=== PATIENT | female | born 1985 | race Caucasian/White ===

== ENCOUNTER 2024-05-27 18:02 | Inpatient (IN) | payer MEDICAID, SELFPAY ==
[2024-05-27 18:04] VITALS: BP 130/100; PULSE 98; RESP 18; TEMP 36.1; O2SAT 96; BMI 25.3
[2024-05-27 18:44] LABS: Absolute Lymphocyte Count 3.55 X10^3/uL (0.83-4.51); Absolute Neutrophil Count 8.1 X10^3/uL (2.0-7.7); Basophil# 0.12 X10^3/uL; Basophil% 0.9 % (0-1); Eosinophil# 0.16 X10^3/uL; Eosinophils% 1.3 % (0-5); Hematocrit 47.5 % (37-47); Hemoglobin 16.2 g/dL (12.0-15.0); Lymphocyte # 3.55 X10^3/ul (0.83-4.51); Lymphocyte % 28.1 % (19-41); Mean Corp Hgb Conc 34.1 g/dL (32-36); Mean Corpuscular Hgb 33.3 pg (27.0-32.0); Mean Corpuscular Volume 97.5 fL (81-99); Mean Platelet Vol. 10.9 fl (6.2-12.0); Monocyte# 0.66 X10^3/uL; Monocyte% 5.2 % (0-10); NRBC Flagged by Analyzer 0 % (0-5); Neutrophil # 8.11 X10^3/uL (2.7-7.7); Neutrophil % 64.1 % (47-70); Platelet Count 390 K/mm3 (150-450); RBC Distribution Width CV 12.7 % (11.6-14.6); RBC Distribution Width SD 45.1 fl (35.1-43.9); Red Blood Count 4.87 M/mm3 (4.2-5.4); White Blood Count 12.7 K/mm3 (4.4-11.0)
--- NOTE | 2024-05-27 19:00 | EDS_ITS ---
HPI History of Present Illness Chief Complaint: Substance Abuse Informant: patient and friend Narrative Narrative: Presents for assistance of alcohol. She has had on off alcohol use for 25 years. She has had more consistent alcohol use over the last 3 years. She states previous able to stop when she was . She has not ever had detox in the past. She drinks a sixpack of beer and a pint of liquor plus per patient. Today has had 6 beers last drink 3 hours ago. She states her last 2 weeks has been waking up with tremors for which she starts drinking to help. She has not had any withdrawal seizures. She states occasional marijuana use last used 2 days ago. No other recreational drugs. Denies nausea or vomiting. She states she has friends at [facility], she was told about detox program here. Denies suicidal or homicidal ideations. Prior similar symptoms: Yes PFSH PFSH Home Medications ?Medication ?Instructions ?Recorded ?Last Taken ?Type No Known/Unobtainable [No Known 5 Unknown History Home Medications] Allergy/AdvReac Type Severity Reaction Status Date / Time No Known Allergies Allergy Verified 05/27/24 18:03 Surgical History History of Social History Smoking Status: Current every day smoker tobacco type: cigarettes ROS ROS ED Constitutional Constitutional ED: Denies chills, fever(s) or sweats ENT ENT ED: Denies sore throat Cardiovascular Cardiovascular: Denies chest pain, leg edema, palpitations or racing heartbeat Respiratory/Chest Respiratory/Chest: Denies cough, dyspnea or dyspnea on exertion Gastrointestinal Gastrointestinal: Denies abdominal pain, diarrhea, nausea or vomiting Genitourinary Genitourinary ED: Denies dysuria, hematuria or urinary frequency Musculoskeletal Musculoskeletal: Denies back pain, extremity pain or neck pain Integumentary Denies rash or wounds Neurologic Neurologic: Reports other Details: Morning tremors were last 2 weeks ; Denies headache(s), paresthesias or weakness EXAM Physical Exam Const Vital Signs: 05/27/24 18:04 05/27/24 20:00 05/27/24 20:04 Temperature 96.9 F L 98.1 F Temperature Source Temporal Pulse Rate 98 96 95 Respiratory Rate 18 18 18 Blood Pressure 130/100 H 113/78 113/78 Blood Pressure Mean 110 89 89 Pulse Ox 96 97 96 Oxygen Delivery Method Room Air Room Air Positive well nourished and well developed Constitutional Narrative: Nontoxic, tearful during discussion. General Appearance ED: well developed and NAD HEENT Reports moist mucous membranes normocephalic and atraumatic Eyes General Eye ED: Yes normal appearance of both eyes Neck full ROM Chest Wall Chest: Negative for tenderness Resp normal respiratory effort and normal air movement Effort and Inspection: symmetric chest movement; Negative for respiratory distress Cardio regular rate, regular rhythm and no murmurs Peripheral Pulses: pulses 2+ throughout GI normal to inspection, nondistended, normoactive bowel sounds and non-tender Palpation: Negative for guarding or rebound tenderness present Extremity normal to inspection General Extremety ED: Negative for edema or tenderness General Extremity: Negative for edema Neuro oriented x3 and no sensory deficits noted Sensorium / Orientation: awake and alert Psych Psych Narrative: No suicidal or homicidal ideations. Skin no rashes or lesions noted and no wounds MDM MDM MDM Narrative Medical decision making narrative: Interventions / MDM: Differential diagnosis: Alcohol dependence, alcohol withdrawal Diagnosis considered but do not suspect: N/A My EKG interpretation: N/A Imaging independently reviewed and interpreted by myself: N/A External documents reviewed: N/A Test considered but not ordered:N/A ED course: Vital signs stable nontoxic. No suicidal homicidal ideations. Here for alcohol detox with withdrawal symptoms new over last 2 weeks. Labs are drawn and pending. Will plan for admission. 1930: Alcohol 180 toxicology with THC. Labs slight transaminitis. hCG negative. Will discuss with hospitalist for admission. 2005: Spoke with Dr. Wood for admission to the medical floor. Re-evaluation: stable Disposition discussed with patient/family/significant other: Patient and friend Case discussed with consulting clinician: Hospitalist This note was generated with [employer] dictation software. It may contain incorrect words, spelling, and punctuation that were not noted in checking the note before signing. Lab Data Attestation: I reviewed the patient's lab results. Labs: Laboratory Results - last 24 hr 05/27/24 18:31 WBC 12.7 H RBC 4.87 Hgb 16.2 H Hct 47.5 H MCV 97.5 MCH 33.3 H MCHC 34.1 RDW Std Deviation 45.1 H RDW Coeff of Nicanor 12.7 Plt Count 390 MPV 10.9 Immature Gran % (Auto) 0.400 Neut % (Auto) 64.1 Lymph % (Auto) 28.1 [place] % (Auto) 5.2 Eos % (Auto) 1.3 Baso % (Auto) 0.9 Absolute Neuts (auto) 8.1 H Absolute Lymphs (auto) 3.55 Nucleated RBC % 0 PT 12.4 INR 0.9 Sodium 140 Potassium 3.8 Chloride 105 Carbon Dioxide 17.9 L Anion Gap 16 H BUN 6 Creatinine 0.66 L Estim Creat Clear Calc 107.64 Est GFR (MDRD) Non-Af 114 BUN/Creatinine Ratio 8.8 L Glucose 90 Calcium 8.9 Magnesium 2.3 H Total Bilirubin 0.23 Direct Bilirubin 0.09 AST 45 H ALT 38 H Alkaline Phosphatase 97 Total Protein 8.0 Albumin 4.3 Globulin 3.6 Serum , Qual NEGATIVE Urine Opiates Screen NEGATIVE U Buprenorphine Qual NEGATIVE Ur Oxycodone Screen NEGATIVE Urine Methadone Screen NEGATIVE Urine Fentanyl Screen NEGATIVE Ur Barbiturates Screen NEGATIVE Ur Phencyclidine Scrn NEGATIVE Ur Amphetamines Screen NEGATIVE U Benzodiazepines Scrn NEGATIVE Urine Cocaine Screen NEGATIVE U Cannabinoids Screen PRESUMPTIVE POSITIVE Ethyl Alcohol 180.0 H Discharge Plan Dx/Rx/DC Orders Clinical Impression: Alcohol dependence, Alcohol withdrawal Disposition Disposition: Acute Care Hospital [facility] Discharge Date/Time: 05/27/24 20:29
[2024-05-27 19:16] LABS: AST(SGOT) 45 U/L (<=31); Alanine Aminotransfer ALT/SGPT 38 U/L (<=34); Albumin, Serum 4.3 g/dL (3.5-5.0); Alkaline Phosphatase 97 U/L (35-104); Anion Gap 16 (5-15); BUN 6 mg/dL (4-19); BUN/Creat Ratio 8.8 RATIO (10-20); Bilirubin, Direct 0.09 mg/dL (0.00-0.30); Calcium,Total 8.9 mg/dL (7.6-11.0); Carbon Dioxide 17.9 mmol/L (21.0-32.0); Chloride 105 mmol/L (98-108); Creatinine, Serum 0.66 mg/dL (0.70-1.20); EST Glomerular Filtration Rate 114 (>60); Estimated Creatinine Clearance 107.64 ml/min (50-250); Globulin 3.6 g/dL (2.2-4.2); Glucose 90 mg/dL (70-99); Potassium 3.8 mmol/L (3.3-5.1); Sodium Level 140 mmol/L (133-145); Total Bilirubin 0.23 mg/dL (0.00-1.30)
[2024-05-27 19:17] LABS: Internal QC Validated? YES +Cl - CLEAR BKGD; Pregnancy, Serum, hCG Quali. NEGATIVE Negative
[2024-05-27 19:18] LABS: Record Kit Lot#, Serum Preg. 929381
[2024-05-27 19:22] LABS: Amphetamine Urine NEGATIVE (<1000 ng/mL); Barbiturate Urine NEGATIVE (< 200 ng/mL); Benzodiazepine Urine NEGATIVE (< 200 ng/mL); Buprenorphine Urine NEGATIVE (< 200 ng/mL); Cocaine Urine NEGATIVE (< 300 ng/mL); Fentanyl, Urine NEGATIVE; Methadone Urine NEGATIVE (< 300 ng/mL); Opiates Urine NEGATIVE (< 300 ng/mL); Oxycodone, Urine NEGATIVE (< 100 ng/mL); PCP Urine NEGATIVE (< 25 ng/mL); THC Urine PRESUMPTIVE POSITIVE (< 50 ng/mL)
[2024-05-27 20:00] VITALS: BP 113/78; PULSE 96; RESP 18; O2SAT 97
--- NOTE | 2024-05-27 20:02 | PCM.HP.STD ---
[facility] - General General Date of Admission: 05/27/24 Date of Service: 05/27/24 Chief Complaint: Wants Help with EtOH Detox. HPI Narrative DEVONTE CANDELARIO, is a 38 F with a past medical history of Tobacco Abuse and Chronic EtOH Abuse; on-and-off for the past ~25 years with more consistent alcohol abuse over the last 3 years with patient routinely drinking a sixpack of beer and a pint of liquor daily who presents to [facility] ER complaining of wanting help with alcohol detoxification. She states her last drink was approximately 3 hours prior to arrival. She states over the last 2 weeks she has been waking up with tremors and craving for alcohol but she denies any related alcohol withdrawal seizures. She also admits to occasional cannabis abuse with her last use approximately 2 days ago. She denies other illicit drugs and she denies having participated in formal detoxification program in the past. She states she was able to quit previously when she was as she has a 21-year-old son in addition to 15 and 16-year-old daughters who need her to be fully functional and sober, which is her primary reason for trying to quit. She states she has friends at [address] and was told about our detoxification program there. She denies associated fever, chills, nausea, vomiting, diarrhea, constipation, abdominal pain chest pain, uncontrolled depression or anxiety, headache, rash or other recent illness/injury. In the ER she was noted to have an elevated JAMIE of 180 mg/dL consistent with Acute Alcohol Intoxication in the setting of Chronic Alcohol Abuse complicated by ongoing Tobacco Abuse and Cannabis Abuse and she was then admitted to the general medical floor for ongoing care for stay that is expected to extend beyond 2 midnights. [facility] Home Medications ?Medication ?Instructions ?Recorded ?Last Taken ?Type No Known/Unobtainable [No Known 06/29/14 Unknown History Home Medications] Allergy/AdvReac Type Severity Reaction Status Date / Time No Known Allergies Allergy Verified 05/27/24 18:03 Surgical History History of Social History Smoking Status: Current every day smoker tobacco type: cigarettes ROS ROS Narrative Review of Systems: Constitutional: Patient denies fever or chills. Eyes: Patient denies changes in vision or discharge from eyes. ENT: Patient denies runny nose, sore throat or ear pain. Resp: Patient denies SOB or cough. CV: Patient denies chest pain, palpitations, heart racing or LE edema. GI: Patient denies abdominal pain, nausea, vomiting, diarrhea or constipation. : Patient denies dysuria, hematuria urinary frequency. MSK: Patient denies arthralgias or myalgias. Skin: Patient denies rash, abscess, wounds or jaundice. Psych: Patient denies symptoms of uncontrolled depression or anxiety. Neuro: Patient denies headache, paresthesias or focal neurologic deficits. Allergy: Patient denies lip swelling, tongue swelling or urticaria. Hematology: Patient denies easy bleeding or easy bruisability. Endocrinology: Patient denies polyuria, polydipsia, polyphagia or heat/cold intolerance. 14 point ROS otherwise negative save for positives noted above in HPI. Vital Signs Vital Signs Vital Signs: 05/27/24 18:04 Temperature 96.9 F L Temperature Source Temporal Pulse Rate 98 Respiratory Rate 18 Blood Pressure 130/100 H Blood Pressure Mean 110 Pulse Ox 96 Oxygen Delivery Method Room Air Weight Weight: 147 lb 8 oz Body Mass Index (BMI) 25.3 Physical Exam Const alert, oriented x3, no apparent distress and average body habitus General Appearance: cooperative HEENT normocephalic, head/scalp atraumatic, hearing grossly normal bilaterally and moist oral mucous membranes Eyes PERRL and EOMs intact bilaterally Neck no lymphadenopathy and supple Resp normal respiratory effort, no retractions, no use of accessory muscles and clear to auscultation bilaterally Cardio regular rate and regular rhythm GI normal to inspection, nondistended, normoactive bowel sounds, soft to palpation, non-tender and non-distended Extremity normal to inspection and full ROM Skin Skin Narrative: Patient has no evidence of rash, abscess, jaundice or wounds. Neuro oriented x3, CN's II-XII intact bilaterally, moves all extremities and no focal motor deficits Sensorium / Orientation: awake, alert, oriented to person, oriented to place and oriented to time Speech: speech normal Psych affect normal Results Medical Records Data Attestation: I reviewed the patient's medical records Lab / Micro Data Attestation: I reviewed the patient's lab results. 05/27/24 18:31 05/27/24 18:31 Labs: Laboratory Results - last 24 hr 05/27/24 18:31: WBC 12.7 H, RBC 4.87, Hgb 16.2 H, Hct 47.5 H, MCV 97.5, MCH 33.3 H, MCHC 34.1, RDW Std Deviation 45.1 H, RDW Coeff of Nicanor 12.7, Plt Count 390, MPV 10.9, Immature Gran % (Auto) 0.400, Neut % (Auto) 64.1, Lymph % (Auto) 28.1, [place] % (Auto) 5.2, Eos % (Auto) 1.3, Baso % (Auto) 0.9, Absolute Neuts (auto) 8.1 H, Absolute Lymphs (auto) 3.55, Nucleated RBC % 0, Sodium 140, Potassium 3.8, Chloride 105, Carbon Dioxide 17.9 L, Anion Gap 16 H, BUN 6, Creatinine 0.66 L, Estim Creat Clear Calc 107.64, Est GFR (MDRD) Non-Af 114, BUN/Creatinine Ratio 8.8 L, Glucose 90, Calcium 8.9, Total Bilirubin 0.23, Direct Bilirubin 0.09, AST 45 H, ALT 38 H, Alkaline Phosphatase 97, Total Protein 8.0, Albumin 4.3, Globulin 3.6, Serum , Qual NEGATIVE, Urine Opiates Screen NEGATIVE, U Buprenorphine Qual NEGATIVE, Ur Oxycodone Screen NEGATIVE, Urine Methadone Screen NEGATIVE, Urine Fentanyl Screen NEGATIVE, Ur Barbiturates Screen NEGATIVE, Ur Phencyclidine Scrn NEGATIVE, Ur Amphetamines Screen NEGATIVE, U Benzodiazepines Scrn NEGATIVE, Urine Cocaine Screen NEGATIVE, U Cannabinoids Screen PRESUMPTIVE POSITIVE, Ethyl Alcohol 180.0 H Assessment & Plan Assessment/Plan (1) Acute alcohol intoxication: QUALIFIERS: Complication of substance-induced condition: uncomplicated Qualified Code(s): F10.920 - Alcohol use, unspecified with intoxication, uncomplicated (2) Chronic alcohol abuse: (3) Tobacco abuse: (4) Cannabis abuse: PLAN: Plan 1. Acute EtOH Intoxication; with JAMIE of 180 mg/dL present on admission in the setting of Chronic EtOH Abuse - Admit to general medical floor under the alcohol detoxification protocol primarily consisting of phenobarbital taper. Start supplemental vitamin B12 and folate. Give ibuprofen as needed for pain or fever. Give ondansetron as needed for nausea and vomiting. Finally, we will consult Case Management see this patient on rounds in the a.m. further recommendations without appreciated in advance. 2. Tobacco Abuse complicating #1 - Tobacco Cessation will be strongly encouraged with Nicotine patch offered to control cravings. 3. Cannabis Abuse compounding #1 & #2 - Cannabis Cessation will be strongly encouraged. 4. Remote history of - Noted for the sake of completeness. 5. DVT prophylaxis - Enoxaparin 40 mg sq daily. Total time: Approximately (but not less than) 40 minutes. Charges/Coding Visit Charges Inpatient E&M: 14158 Init Hosp L1
[2024-05-27 20:04] VITALS: BP 113/78; PULSE 95; RESP 18; TEMP 36.7; O2SAT 96
[2024-05-27 20:31] LABS: International Normalized Ratio 0.9; Prothrombin Time (Protime)PT. 12.4 SECONDS (11.7-14.9)
[2024-05-27 20:33] VITALS: BMI 24.7
[2024-05-27 20:37] VITALS: BP 121/75; PULSE 98; RESP 14; TEMP 36.7; O2SAT 96
[2024-05-27 20:55] LABS: Magnesium 2.3 mg/dL (1.5-2.2)
[2024-05-27] MEDS: 0.9% Normal Saline (1000mL) 1,000 ML 150 ML IV (21:02)
[2024-05-27] MEDS: Phenobarbital 32.4 MG Tablet 64.8 MG PO (21:02)
[2024-05-27] MEDS: Ibuprofen 200 MG Tablet PO (21:02)
[2024-05-27] MEDS: hydrOXYzine PAM 25 MG Capsule 50 MG PO (21:03)
[2024-05-27 22:54] VITALS: BMI 24.7
[2024-05-28 00:30] VITALS: BP 126/87; PULSE 100; RESP 14; TEMP 36.6; O2SAT 97
[2024-05-28] MEDS: Phenobarbital 32.4 MG Tablet 64.8 MG PO ×6 (00:32→21:14)
[2024-05-28] MEDS: 0.9% Normal Saline (1000mL) 1,000 ML 150 ML IV (05:09)
[2024-05-28 05:11] VITALS: BP 118/81; PULSE 84; RESP 14; TEMP 36.6; O2SAT 98
[2024-05-28 08:06] LABS: Absolute Lymphocyte Count 3.87 X10^3/uL (0.83-4.51); Absolute Neutrophil Count 4.4 X10^3/uL (2.0-7.7); Basophil# 0.09 X10^3/uL; Eosinophil# 0.33 X10^3/uL; Eosinophils% 3.5 % (0-5); Hematocrit 44.7 % (37-47); Hemoglobin 14.7 g/dL (12.0-15.0); Lymphocyte # 3.87 X10^3/ul (0.83-4.51); Lymphocyte % 41.2 % (19-41); Mean Corp Hgb Conc 32.9 g/dL (32-36); Mean Corpuscular Hgb 33.3 pg (27.0-32.0); Mean Corpuscular Volume 101.4 fL (81-99); Mean Platelet Vol. 11.5 fl (6.2-12.0); Monocyte# 0.65 X10^3/uL; Monocyte% 6.9 % (0-10); NRBC Flagged by Analyzer 0 % (0-5); Neutrophil # 4.44 X10^3/uL (2.7-7.7); Neutrophil % 47.2 % (47-70); Platelet Count 322 K/mm3 (150-450); RBC Distribution Width CV 12.9 % (11.6-14.6); RBC Distribution Width SD 48.2 fl (35.1-43.9); Red Blood Count 4.41 M/mm3 (4.2-5.4); White Blood Count 9.4 K/mm3 (4.4-11.0)
[2024-05-28 08:43] LABS: ALB/GLOB Ratio 1.3 RATIO (0.9-2.4); AST(SGOT) 32 U/L (<=31); Alanine Aminotransfer ALT/SGPT 29 U/L (<=34); Albumin, Serum 3.6 g/dL (3.5-5.0); Alkaline Phosphatase 85 U/L (35-104); Anion Gap 11 (5-15); BUN 8 mg/dL (4-19); BUN/Creat Ratio 10.4 RATIO (10-20); Calcium,Total 8.4 mg/dL (7.6-11.0); Carbon Dioxide 22.3 mmol/L (21.0-32.0); Chloride 105 mmol/L (98-108); Creatinine, Serum 0.73 mg/dL (0.70-1.20); EST Glomerular Filtration Rate 107 (>60); Estimated Creatinine Clearance 89.35 ml/min (50-250); Globulin 2.9 g/dL (2.2-4.2); Glucose 82 mg/dL (70-99); Phosphorus 4.1 mg/dL (2.7-4.5); Potassium 3.9 mmol/L (3.3-5.1); Protein, Total 6.5 g/dL (5.9-8.4); Sodium Level 138 mmol/L (133-145); Total Bilirubin 0.17 mg/dL (0.00-1.30)
[2024-05-28 09:10] VITALS: BP 129/84; PULSE 80; RESP 16; TEMP 36.8; O2SAT 97
[2024-05-28] MEDS: Folic Acid 1 MG Tablet PO (09:19)
[2024-05-28] MEDS: Thiamine Hydrochloride 100 MG Tablet PO (09:19)
[2024-05-28] MEDS: Enoxaparin 40 MG/0.4 ML Syringe SC (09:20)
[2024-05-28] MEDS: hydrOXYzine PAM 25 MG Capsule 50 MG PO ×2 (09:24→21:23)
--- NOTE | 2024-05-28 12:45 | ADDICTION ---
Attempted to meet with pt. She was sleeping and unable to be roused 3x. Clinician will see her tomorrow for assessment and d/c planning.
--- NOTE | 2024-05-28 13:31 | PN.HOSP_ITS ---
Reason for Visit Reason for Visit: Diagnoses Alcohol abuse, uncomplicated (05/27/24) Alcohol use, unspecified with intoxication, uncomplicated (05/27/24) Cannabis abuse, uncomplicated (05/27/24) Tobacco use (05/27/24) Subjective Subjective Patient sitting up in bed, feeling better, no nausea or vomiting, feels little bit tired but is tolerating taper Objective Data Objective Data Vital Signs: Vital Signs Temp Pulse Resp BP Pulse Ox O2 Del Method 98.3 F 80 16 129/84 H 97 Room Air 05/28/24 09:10 05/28/24 09:10 05/28/24 09:10 05/28/24 09:10 05/28/24 09:10 05/28/24 09:10 Oxygen Delivery Method Room Air Weight: 65.3 kg Body Mass Index (BMI) 24.7 Intake & Output: Intake and Output for Last 24 Hours 05/26/24 05/27/24 05/28/24 23:59 23:59 23:59 Intake Total 2435 / 2435 Balance 2435 / 2435 Lab / Micro Data 05/28/24 06:25 05/28/24 06:25 Labs: Laboratory Results - last 24 hr 05/27/24 18:31: WBC 12.7 H, RBC 4.87, Hgb 16.2 H, Hct 47.5 H, MCV 97.5, MCH 33.3 H, MCHC 34.1, RDW Std Deviation 45.1 H, RDW Coeff of Nicanor 12.7, Plt Count 390, MPV 10.9, Immature Gran % (Auto) 0.400, Neut % (Auto) 64.1, Lymph % (Auto) 28.1, [place] % (Auto) 5.2, Eos % (Auto) 1.3, Baso % (Auto) 0.9, Absolute Neuts (auto) 8.1 H, Absolute Lymphs (auto) 3.55, Nucleated RBC % 0, PT 12.4, INR 0.9, Sodium 140, Potassium 3.8, Chloride 105, Carbon Dioxide 17.9 L, Anion Gap 16 H, BUN 6, Creatinine 0.66 L, Estim Creat Clear Calc 107.64, Est GFR (MDRD) Non-Af 114, B UN/Creatinine Ratio 8.8 L, Glucose 90, Calcium 8.9, Magnesium 2.3 H, Total Bilirubin 0.23, Direct Bilirubin 0.09, AST 45 H, ALT 38 H, Alkaline Phosphatase 97, Total Protein 8.0, Albumin 4.3, Globulin 3.6, Serum , Qual NEGATIVE, Urine Opiates Screen NEGATIVE, U Buprenorphine Qual NEGATIVE, Ur Oxycodone Screen NEGATIVE, Urine Methadone Screen NEGATIVE, Urine Fentanyl Screen NEGATIVE, Ur Barbiturates Screen NEGATIVE, Ur Phencyclidine Scrn NEGATIVE, Ur Amphetamines Screen NEGATIVE, U Benzodiazepines Scrn NEGATIVE, Urine Cocaine Screen NEGATIVE, U Cannabinoids Screen PRESUMPTIVE POSITIVE, Ethyl Alcohol 180.0 H 05/28/24 06:25: WBC 9.4, RBC 4.41, Hgb 14.7, Hct 44.7, MCV 101.4 H, MCH 33.3 H, MCHC 32.9, RDW Std Deviation 48.2 H, RDW Coeff of Nicanor 12.9, Plt Count 322, MPV 11.5, Immature Gran % (Auto) 0.200, Neut % (Auto) 47.2, Lymph % (Auto) 41.2 H, [place] % (Auto) 6.9, Eos % (Auto) 3.5, Baso % (Auto) 1.0, Absolute Neuts (auto) 4.4, Absolute Lymphs (auto) 3.87, Nucleated RBC % 0, Sodium 138, Potassium 3.9, Chloride 105, Carbon Dioxide 22.3, Anion Gap 11, BUN 8, Creatinine 0.73, Estim Creat Clear Calc 89.35, Est GFR (MDRD) Non-Af 107, BUN/Creatinine Ratio 10.4, Glucose 82, Calcium 8.4, Phosphorus 4.1, Total Bilirubin 0.17, AST 32, ALT 29, Alkaline Phosphatase 85, Total Protein 6.5, Albumin 3.6, Globulin 2.9, Albumin/Globulin Ratio 1.3, TSH 2.830 Physical Exam Narrative General: Alert, no apparent distress HEENT: Atraumatic, normocephalic Eyes: extraocular movements grossly intact Neck: Supple Respiratory: normal respiratory effort GI: nondistended Extremities: Moving all extremities Neuro: No overt focal neurological deficits Psych: Cooperative Assessment & Plan Assessment/Plan (1) Acute alcohol intoxication: QUALIFIERS: Complication of substance-induced condition: u ncomplicated Qualified Code(s): F10.920 - Alcohol use, unspecified with intoxication, uncomplicated (2) Chronic alcohol abuse: (3) Tobacco abuse: (4) Cannabis abuse: PLAN: Plan 1. Acute EtOH Intoxication; with JAMIE of 180 mg/dL present on admission in the setting of Chronic EtOH Abuse - Admit to general medical floor under the alcohol detoxification protocol primarily consisting of phenobarbital taper. Start supplemental vitamin B12 and folate. Give ibuprofen as needed for pain or fever. Give ondansetron as needed for nausea and vomiting. Finally, we will consult Case Management see this patient on rounds in the a.m. further recommendations without appreciated in advance. -05/28: Patient tolerating taper thus far, continue current medical management Chronic medical problems and/or problems not being actively addressed during today's encounter: 2. Tobacco Abuse complicating #1 - Tobacco Cessation will be strongly encouraged with Nicotine patch offered to control cravings. 3. Cannabis Abuse compounding #1 & #2 - Cannabis Cessation will be strongly encouraged. 4. Remote history of - Noted for the sake of completeness. 5. DVT prophylaxis - Enoxaparin 40 mg sq daily. Charges/Coding Visit Charges Inpatient E&M: 96558 Subs Hosp L1
[2024-05-28 14:30] VITALS: BP 124/79; PULSE 78; RESP 16; TEMP 37.2; O2SAT 97
[2024-05-28 21:12] VITALS: BP 124/85; PULSE 76; RESP 16; TEMP 36.6; O2SAT 99
[2024-05-28] MEDS: 0.9% Saline Lock 10 ML Syringe IV (21:24)
[2024-05-29] VITALS (7 sets, daily range): BP systolic 114–134; BP diastolic 62–94; PULSE 71–94; RESP 16–18; TEMP 36.4–37; O2SAT 97–99; BMI 26.6
[2024-05-29] MEDS: Phenobarbital 32.4 MG Tablet 64.8 MG PO ×6 (01:15→20:08)
[2024-05-29] MEDS: hydrOXYzine PAM 25 MG Capsule 50 MG PO ×4 (04:20→20:08)
[2024-05-29] MEDS: Folic Acid 1 MG Tablet PO (07:54)
[2024-05-29] MEDS: Thiamine Hydrochloride 100 MG Tablet PO (07:54)
[2024-05-29] MEDS: Enoxaparin 40 MG/0.4 ML Syringe SC (07:55)
--- NOTE | 2024-05-29 09:29 | NURSING ---
Called recieved from [facility]. This nurse provided update on current status/mood.
--- NOTE | 2024-05-29 17:15 | PN.HOSP_ITS ---
Reason for Visit Reason for Visit: Diagnoses Alcohol abuse, uncomplicated (05/27/24) Alcohol use, unspecified with intoxication, uncomplicated (05/27/24) Cannabis abuse, uncomplicated (05/27/24) Tobacco use (05/27/24) Subjective Subjective Still somewhat tired but tolerating taper, no new or acute complaints Objective Data Objective Data Vital Signs: Vital Signs Temp Pulse Resp BP Pulse Ox O2 Del Method 98.6 F 72 16 128/87 H 99 Room Air 05/29/24 14:20 05/29/24 14:20 05/29/24 14:20 05/29/24 14:20 05/29/24 14:20 05/29/24 14:20 Oxygen Delivery Method Room Air Weight: 70.4 kg Body Mass Index (BMI) 26.6 Intake & Output: Intake and Output for Last 24 Hours 05/27/24 05/28/24 05/29/24 23:59 23:59 23:59 Intake Total 2935 / 2935 800 / 800 Balance 2935 / 2935 800 / 800 Lab / Micro Data 05/28/24 06:25 05/28/24 06:25 Labs: Laboratory Results - last 24 hr 05/29/24 06:23: Phosphorus 4.0 Physical Exam Narrative General: Alert, oriented, no apparent distress HEENT: Atraumatic, normocephalic Eyes: extraocular movements grossly intact Neck: Supple Respiratory: normal respiratory effort Cardiovascular: no edema appreciated GI: nondistended Extremities: Moving all extremities Neuro: No overt focal neurological deficits Psych: Cooperative Assessment & Plan Assessment/Plan (1) Acute alcohol intoxication: QUALIFIERS: Complication of substance-induced condition: u ncomplicated Qualified Code(s): F10.920 - Alcohol use, unspecified with intoxication, uncomplicated (2) Chronic alcohol abuse: (3) Tobacco abuse: (4) Cannabis abuse: PLAN: Plan 1. Acute EtOH Intoxication; with JAMIE of 180 mg/dL present on admission in the setting of Chronic EtOH Abuse - Admit to general medical floor under the alcohol detoxification protocol primarily consisting of phenobarbital taper. Start supplemental vitamin B12 and folate. Give ibuprofen as needed for pain or fever. Give ondansetron as needed for nausea and vomiting. Finally, we will consult Case Management see this patient on rounds in the a.m. further recommendations without appreciated in advance. -05/28: Patient tolerating taper thus far, continue current medical management -05/29: Continues to tolerate taper, no new or acute complaints, continue current management at this time Chronic medical problems and/or problems not being actively addressed during today's encounter: 2. Tobacco Abuse complicating #1 - Tobacco Cessation will be strongly encouraged with Nicotine patch offered to control cravings. 3. Cannabis Abuse compounding #1 & #2 - Cannabis Cessation will be strongly encouraged. 4. Remote history of - Noted for the sake of completeness. 5. DVT prophylaxis - Enoxaparin 40 mg sq daily. Charges/Coding Visit Charges Inpatient E&M: 16257 Subs Hosp L1
--- NOTE | 2024-05-29 17:38 | ADDICTION ---
Pt was met w/to complete the Ramp assessment, AUDIT, ASAM, DUDIT, MSE, and DC Plan. Pt reports her drinking is daily and interfering with her ability to fx and meet her most basic needs. Pt reports some depression and low motivation related to her ANTELMO. Pt states that she and her fifteen year old daughter are staying with a friend who has mh issues and the pt wants to find different housing. Pt states that she would consider entering residential tx if her 15 yr old daughter can accompany her to residential tx. Typically [facility] caps parent child admissions at age twelve. Pt was referred to [facility] admissions team to evaluate pt's barriers to residential. Pt was encouraged to contact [facility] on Friday for an assessment. Pt's d/c plan is to return to her friend's home and continue exploring options for outpatient ANTELMO tx.
[2024-05-29] MEDS: Ibuprofen 200 MG Tablet PO (20:08)
[2024-05-29] MEDS: traZODone 100 MG Tablet PO (20:08)
[2024-05-30] MEDS: Phenobarbital 32.4 MG Tablet 64.8 MG PO ×4 (00:39→16:36)
[2024-05-30 03:38] VITALS: BP 120/79; PULSE 84; RESP 18; TEMP 36.5; O2SAT 98
[2024-05-30 06:15] VITALS: BP 130/70; PULSE 90; RESP 18; TEMP 36.6; O2SAT 98
[2024-05-30 08:15] VITALS: BMI 25.7
[2024-05-30 08:45] VITALS: PULSE 89; RESP 18; O2SAT 100
[2024-05-30] MEDS: Folic Acid 1 MG Tablet PO (09:00)
[2024-05-30] MEDS: Thiamine Hydrochloride 100 MG Tablet PO (09:00)
[2024-05-30] MEDS: Enoxaparin 40 MG/0.4 ML Syringe SC (09:01)
[2024-05-30 09:11] VITALS: BP 101/76; PULSE 89; RESP 18; TEMP 36.6; O2SAT 100
[2024-05-30] MEDS: hydrOXYzine PAM 25 MG Capsule 50 MG PO ×2 (10:34→15:12)
[2024-05-30 15:00] VITALS: PULSE 89; RESP 18; O2SAT 100
[2024-05-30 15:06] VITALS: BP 150/70; PULSE 89; RESP 18; TEMP 36.6; O2SAT 100
[2024-05-30] MEDS: Senna/Docusate Sodium 1 Tablet 2 TABLET PO (15:09)
--- NOTE | 2024-05-30 16:10 | PN.HOSP_ITS ---
Reason for Visit Reason for Visit: Diagnoses Alcohol abuse, uncomplicated (05/27/24) Alcohol use, unspecified with intoxication, uncomplicated (05/27/24) Cannabis abuse, uncomplicated (05/27/24) Tobacco use (05/27/24) Subjective Subjective Patient now more awake and alert and starting to get up around and ambulate Objective Data Objective Data Vital Signs: Vital Signs Temp Pulse Resp BP Pulse Ox O2 Del Method 98 F 89 18 150/70 H 100 Room Air 05/30/24 15:06 05/30/24 15:06 05/30/24 15:06 05/30/24 15:06 05/30/24 15:06 05/30/24 15:06 Oxygen Delivery Method Room Air Weight: 68.039 kg Body Mass Index (BMI) 25.7 Intake & Output: Intake and Output for Last 24 Hours 05/28/24 05/29/24 05/30/24 23:59 23:59 23:59 Intake Total 2935 / 2935 1200 / 1200 1500 / 1500 Balance 2935 / 2935 1200 / 1200 1500 / 1500 Lab / Micro Data 05/28/24 06:25 05/28/24 06:25 Physical Exam Narrative General: Alert, oriented, no apparent distress HEENT: Atraumatic, normocephalic Eyes: extraocular movements grossly intact Neck: Supple Respiratory: normal respiratory effort Cardiovascular: no edema appreciated GI: nondistended Extremities: Moving all extremities Neuro: No overt focal neurological deficits Psych: Cooperative Assessment & Plan Assessment/Plan (1) Acute alcohol intoxication: QUALIFIERS: Complication of substance-induced condition: u ncomplicated Qualified Code(s): F10.920 - Alcohol use, unspecified with intoxication, uncomplicated (2) Chronic alcohol abuse: (3) Tobacco abuse: (4) Cannabis abuse: PLAN: Plan 1. Acute EtOH Intoxication; with JAMIE of 180 mg/dL present on admission in the setting of Chronic EtOH Abuse - Admit to general medical floor under the alcohol detoxification protocol primarily consisting of phenobarbital taper. Start supplemental vitamin B12 and folate. Give ibuprofen as needed for pain or fever. Give ondansetron as needed for nausea and vomiting. Finally, we will consult Case Management see this patient on rounds in the a.m. further recommendations without appreciated in advance. -05/28: Patient tolerating taper thus far, continue current medical management -05/29: Continues to tolerate taper, no new or acute complaints, continue current management at this time -05/30: Taper will and weight tomorrow, discussed DC today versus tomorrow based on symptoms and tolerance, patient to DC home tomorrow and follow-up outpatient for further addiction services Chronic medical problems and/or problems not being actively addressed during today's encounter: 2. Tobacco Abuse complicating #1 - Tobacco Cessation will be strongly encouraged with Nicotine patch offered to control cravings. 3. Cannabis Abuse compounding #1 & #2 - Cannabis Cessation will be strongly encouraged. 4. Remote history of - Noted for the sake of completeness. 5. DVT prophylaxis - Enoxaparin 40 mg sq daily. Charges/Coding Visit Charges Inpatient E&M: 97919 Subs Hosp L1
--- NOTE | 2024-05-30 17:18 | DCINST_ITS ---
Discharge Instructions Diet Discharge Diet: No restrictions DC O2, CPAP, BIPAP needs Home O2 Discharge instructions: No Dressing / Incision Discharge Activity: Return to Normal Activity Follow Up Care Test Results: Test results from this visit will be discussed in further detail at your follow- up appointment, if applicable. Discharge Plan Admission Admit Date/Time: 05/27/24 20:11 Primary Reason for Your Visit: ETOH detox Attending Provider: Leann Hutchinson Primary Care Provider: Care Physician,No Primary Consulting Providers: Enrique Cook Instructions Patient Instructions: Alcohol Addiction, Addiction Questionnaire, Addiction: Getting Help, Addiction Recovery Counseling, Addiction Recovery Relapse Discharge Orders/Prescriptions Prescriptions: Continued No Known Home Medications Referrals / Follow Up: Care Physician,No Primary [Primary Care Provider] - Disposition Disposition (needs filled in before D/C Order can be placed): Home, Self Care
--- NOTE | 2024-05-30 17:19 | PCM.DC.SUM ---
Providers Date of Admission: 05/27/24 Date of Discharge: 05/30/24 Primary Care Physician: Esther Primary Care Phys Reason For Visit: IMPENDING ETOH W/D Diagnosis Discharge Diagnosis (1) Acute alcohol intoxication: Status: Acute Code(s): F10.929 - Alcohol use, unspecified with intoxication, unspecified Qualifiers: Complication of substance-induced condition: uncomplicated Qualified Code(s): F10.920 - Alcohol use, unspecified with intoxication, uncomplicated (2) Chronic alcohol abuse: Status: Chronic Code(s): F10.10 - Alcohol abuse, uncomplicated (3) Tobacco abuse: Status: Acute Code(s): Z72.0 - Tobacco use (4) Cannabis abuse: Status: Acute Code(s): F12.10 - Cannabis abuse, uncomplicated Plan 1. Acute EtOH Intoxication 2. Tobacco Abuse complicating 3. Cannabis Abuse compounding 4. Remote history of Medications at Discharge Home Medications No Known/Unobtainable [No Known Home Medications] 06/29/14 Hospital Course Summary of Care Provided Minutes Spent on Discharge: 22 Hospital Course: Patient was admitted 05/27/2024 requesting detox from alcohol. Patient was admitted and detox protocol ordered. They completed their detox and were discharged in stable condition. On the day of discharge no new medical complaints voiced. Physical Exam Narrative General: Alert, oriented, no apparent distress HEENT: Atraumatic, normocephalic Eyes: extraocular movements grossly intact Neck: Supple Respiratory: normal respiratory effort Cardiovascular: no edema appreciated GI: nondistended Extremities: Moving all extremities Neuro: No overt focal neurological deficits Psych: Cooperative Weight / BMI Weight Weight: 68.039 kg Body Mass Index (BMI) 25.7 ABG / Lab / Microbiology Data 05/28/24 06:25 05/28/24 06:25 D/C Instructions Discharge Diet: No restrictions DC O2, CPAP, BIPAP Needs Home O2 Discharge instructions: No Meaningful Use Info Meaningful Use Meaningful Use Diagnoses (Choose all that apply): None applicable Ischemic Stroke Statin Dosing Therapy Reference: STATIN DOSE THERAPY REFERENCE: * Patients > 75 years receive moderate or high dose statin therapy. * Patients 75 years or YOUNGER should receive HIGH intensity statin dose unless contraindicated. You will be required to document reason for non-treatment if statin daily dose does not meet guidelines. HIGH DOSE STATIN THERAPY DAILY Atorvastatin > than or = to 40 mg Rosuvastatin > than or = to 20 mg Amlodipine + Atorvastatin > than or = to 2.5/40 mg Ezetimibe + Simvastatin 10/80 mg Simvastatin 80mg Discharge Plan Admission Admit Date/Time: 05/27/24 20:11 Primary Reason for Your Visit: ETOH detox Attending Provider: Leann Hutchinson Primary Care Provider: Care Physician,No Primary Consulting Providers: Enrique Cook Instructions Patient Instructions: Alcohol Addiction, Addiction Questionnaire, Addiction: Getting Help, Addiction Recovery Counseling, Addiction Recovery Relapse Discharge Orders/Prescriptions Prescriptions: Continued No Known Home Medications Referrals / Follow Up: Care Physician,No Primary [Primary Care Provider] - Disposition Disposition (needs filled in before D/C Order can be placed): Home, Self Care
== END 2024-05-30 18:25 | disposition home or self-care (01) | DRG 775 ==
LOC: ED 19:31 → MS3 20:43
PROVIDERS: Admitting Provider Internal Medicine; Emergency Provider Emergency Medicine; Referring Provider Internal Medicine; Visit Provider Internal Medicine
DX: F10.129 Alcohol abuse with intoxication, unspecified (principal); F12.10 Cannabis abuse, uncomplicated; F17.210 Nicotine dependence, cigarettes, uncomplicated; Y90.6 Blood alcohol level of 120-199 mg/100 ml
CPT/HCPCS: 36415; 80048; 80053; 80076; 80307; 82077; 83735; 84100; 84443; 84703; 85025; 85610; 94668; 99283; 99406; A4216

== ENCOUNTER 2024-06-28 11:54 | Emergency (ER) | payer MEDICAID, SELFPAY ==
[2024-06-28] VITALS (9 sets, daily range): BP systolic 120–179; BP diastolic 79–98; PULSE 56–83; RESP 16; TEMP 35.8; O2SAT 96–99; BMI 25.4
--- NOTE | 2024-06-28 13:56 | EDS_ITS ---
HPI HPI - Psych History of Present Illness Chief Complaint: Mental Health Informant: patient and mental health staff Narrative Narrative: 38-year-old female presenting to the emergency room under pink slip by [facility] ([facility]). Patient was admitted to the [facility] at the beginning of May. She resumed drinking shortly thereafter but not to the extent that she was. She states that she recreationally uses cannabis and will occasionally have alcohol now. She states that her mental health is suffering and she feels depressed. She states that she thinks about daily but does not believe she is actively suicidal. She denies homicidal ideation. Patient states that she is not currently working. She does not speak with her family. She has 2 children that do not stay with her. She states she used to have a roommate. She states that she will sometimes sleep at a campground sometimes at a motel. She is not currently taking any psychiatric medications. She does not regularly see counseling or psychiatry. She was not able to contract for safety with [facility]. [facility] Medical History (Updated 06/28/24 @ 16:[address] Walt Hall DO) Cannabis abuse Tobacco abuse Chronic alcohol abuse Alcohol dependence Home Medications ?Medication ?Instructions ?Recorded ?Last Taken ?Type diphenhydramine HCl 25 mg capsule 25 mg PO PRN 5 Unknown History (Benadryl) Allergy/AdvReac Type Severity Reaction Status Date / Time No Known Allergies Allergy Verified 06/28/24 11:55 Family History no significant family his Surgical History History of Social History Smoking Status: Current every day smoker tobacco type: cigarettes ROS ROS ED Constitutional Constitutional ED: Denies chills, fever(s) or weight loss Eyes Eyes: Denies change in vision or diplopia ENT ENT ED: Denies ear pain, rhinorrhea or sore throat Cardiovascular Cardiovascular: Denies chest pain, orthopnea, palpitations or racing heartbeat Respiratory/Chest Respiratory/Chest: Denies cough, dyspnea or orthopnea Gastrointestinal Gastrointestinal: Denies abdominal pain, diarrhea, nausea or vomiting Genitourinary Genitourinary ED: Denies dysuria, hematuria or urinary frequency Musculoskeletal Musculoskeletal: Denies arthralgias or myalgias Integumentary Denies abscess or rash Neurologic Neurologic: Denies headache(s) or weakness Psychiatric Psychiatric: Reports anxiety, depression and suicidal thoughts; Denies suicidal ideation Endocrine Endocrinology: Denies polydipsia, polyphagia or polyuria Allergic/Immunologic Allergic/Immunologic ED: Denies mouth swelling, tongue swelling or urticaria EXAM Physical Exam Const Vital Signs: 06/28/24 11:55 06/28/24 12:54 06/28/24 13:00 Temperature 96.5 F L Temperature Source Temporal Pulse Rate 74 78 Respiratory Rate 16 Blood Pressure 179/98 H 150/90 H 150/90 H Blood Pressure Mean 125 110 110 Pulse Ox 96 98 97 Oxygen Delivery Method Room Air Room Air Room Air 06/28/24 14:00 06/28/24 15:00 06/28/24 15:52 Temperature Temperature Source Pulse Rate 78 56 L 80 Respiratory Rate Blood Pressure 150/90 H 126/92 H Blood Pressure Mean 110 103 Pulse Ox 98 99 98 Oxygen Delivery Method Room Air Room Air Room Air Positive well nourished and well developed General Appearance ED: well developed HEENT Reports normocephalic, head/scalp atraumatic and moist mucous membranes Eyes PERRL and EOMs intact bilaterally Neck no lymphadenopathy, supple and no JVD Resp normal respiratory effort and clear to auscultation bilaterally Cardio regular rate, regular rhythm and no murmurs GI normal to inspection, nondistended, normoactive bowel sounds and non-tender Palpation: soft Back/Spine no CVA tenderness and normal ROM Extremity normal to inspection General Extremety ED: Negative for edema General Extremity: Negative for edema Neuro oriented x3 and CN's II-XII intact bilaterally Sensorium / Orientation: alert Motor Exam: strength 5/5 throughout Psych mental status grossly normal Appearance: grossly normal Mood & Affect: depressed and sad; Negative for tearful Thought Process: normal thought process Thought Content: other Patient reports thinking of daily Attention / Concentration: attention grossly intact Memory / Cognition: memory grossly intact Skin no rashes or lesions noted and no wounds MDM MDM MDM Narrative Medical decision making narrative: Differential diagnosis includes but not limited to depression bipolar disorder suicidal ideation alcoholism electrolyte abnormalities Psychiatric screening labs were obtained essentially negative. test is negative. Toxicology positive only for cannabinoids which she is readily admits to. Alcohol level is negative. I read the pink slip in the assessment by [facility]. I will fill out a pink slip. We are going to work towards a goal of psychiatric hospitalization. History & Record Review Discussion w/independent historian: Patient Additional record(s) reviewed:: Prior inpatient record, Prior outpatient record, Prior ED visit and Prior labs Lab Data Attestation: I reviewed the patient's lab results. Labs: Laboratory Results - last 24 hr 06/28/24 06/28/24 13:30 14:15 WBC 11.3 H RBC 4.35 Hgb 14.0 Hct 41.6 MCV 95.6 MCH 32.2 H MCHC 33.7 RDW Std Deviation 42.5 RDW Coeff of Nicanor 12.1 Plt Count 279 MPV 11.7 Immature Gran % (Auto) 0.500 Neut % (Auto) 66.0 Lymph % (Auto) 26.8 Morrow % (Auto) 4.8 Eos % (Auto) 1.4 Baso % (Auto) 0.5 Absolute Neuts (auto) 7.4 Absolute Lymphs (auto) 3.02 Nucleated RBC % 0 PT 12.6 INR 0.9 Sodium 136 Potassium 4.0 Chloride 105 Carbon Dioxide 19.3 L Anion Gap 11 BUN 6 Creatinine 0.61 L Estim Creat Clear Calc 116.64 Est GFR (MDRD) Non-Af 116 BUN/Creatinine Ratio 9.1 L Glucose 89 Calcium 8.9 Total Bilirubin 0.36 Direct Bilirubin 0.19 AST 21 ALT 24 Alkaline Phosphatase 81 Total Protein 6.9 Albumin 3.9 Globulin 3.0 Serum , Qual NEGATIVE Urine Opiates Screen NEGATIVE U Buprenorphine Qual NEGATIVE Ur Oxycodone Screen NEGATIVE Urine Methadone Screen NEGATIVE Urine Fentanyl Screen NEGATIVE Ur Barbiturates Screen NEGATIVE Ur Phencyclidine Scrn NEGATIVE Ur Amphetamines Screen NEGATIVE U Benzodiazepines Scrn NEGATIVE Urine Cocaine Screen NEGATIVE U Cannabinoids Screen PRESUMPTIVE POSITIVE Ethyl Alcohol < 10.1 Discharge Plan Triage Chief Complaint: Mental Health ED Provider: Walt Hall Dx/Rx/DC Orders Clinical Impression: Depression, Alcoholism Prescriptions: No Action diphenhydramine HCl [Benadryl] 25 mg capsule 25 mg PO PRN Primary Care Provider: Care Physician,No Primary Referrals: Care Physician,No Primary [Primary Care Provider] - Print Language: Somali Disposition Disposition: Psychiatric Hospital or Unit
[2024-06-28 14:45] LABS: Absolute Lymphocyte Count 3.02 X10^3/uL (0.83-4.51); Absolute Neutrophil Count 7.4 X10^3/uL (2.0-7.7); Basophil# 0.06 X10^3/uL; Basophil% 0.5 % (0-1); Eosinophil# 0.16 X10^3/uL; Eosinophils% 1.4 % (0-5); Hematocrit 41.6 % (37-47); Lymphocyte # 3.02 X10^3/ul (0.83-4.51); Lymphocyte % 26.8 % (19-41); Mean Corp Hgb Conc 33.7 g/dL (32-36); Mean Corpuscular Hgb 32.2 pg (27.0-32.0); Mean Corpuscular Volume 95.6 fL (81-99); Mean Platelet Vol. 11.7 fl (6.2-12.0); Monocyte# 0.54 X10^3/uL; Monocyte% 4.8 % (0-10); NRBC Flagged by Analyzer 0 % (0-5); Neutrophil # 7.42 X10^3/uL (2.7-7.7); Platelet Count 279 K/mm3 (150-450); RBC Distribution Width CV 12.1 % (11.6-14.6); RBC Distribution Width SD 42.5 fl (35.1-43.9); Red Blood Count 4.35 M/mm3 (4.2-5.4); White Blood Count 11.3 K/mm3 (4.4-11.0)
[2024-06-28 14:50] LABS: Amphetamine Urine NEGATIVE (<1000 ng/mL); Barbiturate Urine NEGATIVE (< 200 ng/mL); Benzodiazepine Urine NEGATIVE (< 200 ng/mL); Buprenorphine Urine NEGATIVE (< 200 ng/mL); Cocaine Urine NEGATIVE (< 300 ng/mL); Fentanyl, Urine NEGATIVE; Methadone Urine NEGATIVE (< 300 ng/mL); Opiates Urine NEGATIVE (< 300 ng/mL); Oxycodone, Urine NEGATIVE (< 100 ng/mL); PCP Urine NEGATIVE (< 25 ng/mL); THC Urine PRESUMPTIVE POSITIVE (< 50 ng/mL)
[2024-06-28 15:00] LABS: International Normalized Ratio 0.9; Prothrombin Time (Protime)PT. 12.6 SECONDS (11.7-14.9)
[2024-06-28 15:14] LABS: Internal QC Validated? YES +Cl - CLEAR BKGD; Pregnancy, Serum, hCG Quali. NEGATIVE Negative
[2024-06-28 15:29] LABS: AST(SGOT) 21 U/L (<=31); Alanine Aminotransfer ALT/SGPT 24 U/L (<=34); Albumin, Serum 3.9 g/dL (3.5-5.0); Alkaline Phosphatase 81 U/L (35-104); Anion Gap 11 (5-15); BUN 6 mg/dL (4-19); BUN/Creat Ratio 9.1 RATIO (10-20); Bilirubin, Direct 0.19 mg/dL (0.00-0.30); Calcium,Total 8.9 mg/dL (7.6-11.0); Carbon Dioxide 19.3 mmol/L (21.0-32.0); Chloride 105 mmol/L (98-108); Creatinine, Serum 0.61 mg/dL (0.70-1.20); EST Glomerular Filtration Rate 116 (>60); Estimated Creatinine Clearance 116.64 ml/min (50-250); Glucose 89 mg/dL (70-99); Protein, Total 6.9 g/dL (5.9-8.4); Sodium Level 136 mmol/L (133-145); Total Bilirubin 0.36 mg/dL (0.00-1.30)
[2024-06-28 15:30] LABS: Alcohol, Blood (Medical)-Serum < 10.1 mg/dL (<=10.0)
--- NOTE | 2024-06-28 16:57 | ED.RN ---
CRISIS CALLED AT 1500 TO UPDATE PATIENT REFERRAL TO [facility]
--- NOTE | 2024-06-28 18:08 | ED.RN ---
Report Given to Nataly at [facility].
== END 2024-06-29 02:28 ==
PROVIDERS: Emergency Provider Emergency Medicine; Visit Provider Emergency Medicine
DX: F10.20 Alcohol dependence, uncomplicated (principal); F32.A Depression, unspecified; F17.210 Nicotine dependence, cigarettes, uncomplicated
CPT/HCPCS: 80048; 80076; 80307; 82077; 84703; 85025; 85610; 99283